=== PATIENT | female | born 2005 | race Hispanic/Latino ===

== ENCOUNTER 2025-02-21 16:14 | Emergency (ER) | payer SELFPAY ==
[~2025-02-21] VITALS: Ht 149.9 cm; Wt 86.2 kg
[2025-02-21 17:19] LABS: COVID19 (SARS ANTIGEN RAPID) PRESUMPTIVE NEGATIVE (NEGATIVE); INFLUENZA TYPE A Negative For Type A (NEGATIVE)
[2025-02-21 17:24] LABS: INFLUENZA TYPE B Positive For Type B (NEGATIVE)
[2025-02-21 17:25] LABS: APPEARANCE,URINE CLOUDY (CLEAR); BILIRUBIN,URINE NEGATIVE (NEGATIVE); COLOR,URINE YELLOW (YELLOW); GLUCOSE, URINE (UA) NEGATIVE (NEGATIVE); KETONES,URINE 5 mg/dL (NEGATIVE); LEUKOCYTE ESTERASE ,URINE NEGATIVE Leu/uL (NEGATIVE); NITRATE,URINE NEGATIVE (NEGATIVE); OCCULT BLOOD,URINE SMALL (NEGATIVE); PH,URINE 5.5 (5.0-8.0); PROTEIN,URINE 30 mg/dL (NEGATIVE); UROBILINOGEN,URINE 0.2 mg/dL (0.2-1.0)
[2025-02-21 17:26] LABS: HCG,QUALITATIVE URINE NEGATIVE (NEGATIVE)
--- NOTE | 2025-02-21 17:31 | ERN ---
ED Note History of Present Illness Stated Complaint: FLU SYMPTOMS Chief Complaint: Congestion Time Seen by MD: 16:17 Time Seen by Midlevel: 16:20 Dictation: 19-year-old female with no past medical history coming in complaining of congestion, chills, nausea onset last night. LMP isn't November, states she is irregular. Denies having any abdominal pain, diarrhea, dysuria or hematuria. Allergies: Coded Allergies: No Known Drug Allergies (Unverified Allergy, Unknown, 02/21/25) Past Medical History Past Medical History: No Pertinent History Surgical History: None Review of System Dictation Constitutional: Positive for chills and generalized malaise, and no weight loss Eyes: Negative for injury, pain,redness, and discharge ENT: Negative for injury,pain or swelling Cardiovascular: Negative for chest pain, palpitations, and edema Respiratory: Negative for shortness of breath, cough, and wheezing, Abdomen/GI: Negative for abdominal pain, nausea, vomiting, diarrhea, and constipation Back: Negative for injury and pain : Negative for injury, bleeding and discharge MS/Extremity: Negative for injury and deformity Skin: Negative for rash, and discoloration Neuro: Negative for headache, weakness, numbness, tingling, and seizure Psych: Negative for suicide ideation, homicidal ideation, and hallucinations Review of Systems: was completed Initial Vital Sign VS Vital Signs Date Time Temp Pulse Resp B/P (MAP) Pulse Ox O2 Delivery O2 Flow Rate FiO2 02/21/25 16:14 99.0 107 16 115/85 97 Room Air Physical Exam Dictation General: awake, alert, NAD Head/Face: Normocephalic, atraumatic Eyes: PERRL, EOMI, vision at baseline ENT: oral cavity clear, TMs clear, no signs of infection Neck: Trachea midline, supple, no nuchal rigidity Cardiovascular: RRR, normal S1/S2, No MRGs, no JVD Respiratory: CTAB, no respiratory distress, No rales or wheezes Abdomen: Soft, non-tender, non-distended, normal bowel sounds, no guarding or rebound. Skin: Warm, dry, normal turgor, no rash MS/Extremity: Pulses equal, no cyanosis, neurovascular intact, FROM Neuro: COAx4, GCS 15, strength 5/5, CN 2-12 intact, normal cerebellar exam, normal gait, Psych: Normal behavior, mood, and affect normal Results (Laboratory/Radiology) Laboratory/Radiology Laboratory Tests Test 02/21/25 16:50 02/21/25 17:04 Influenza Type A Antigen Negative For Type A Influenza Type B Antigen Positive For Type B SARS-CoV-2 Antigen (Rapid) PRESUMPTIVE NEGATIVE Urine Color YELLOW (YELLOW) Urine Appearance CLOUDY (CLEAR) H Urine pH 5.5 (5.0-8.0) Urine Specific [place] 1.033 (1.001-1.031) Urine Protein 30 mg/dL (NEGATIVE) H Urine Glucose (UA) NEGATIVE mg/dL (NEGATIVE) Urine Ketones 5 mg/dL (NEGATIVE) H Urine Occult Blood SMALL (NEGATIVE) H Urine Nitrate NEGATIVE (NEGATIVE) Urine Bilirubin NEGATIVE mg/dL (NEGATIVE) Urine Urobilinogen 0.2 mg/dL (0.2-1.0) Urine Leukocyte Esterase NEGATIVE Adrien/uL Urine RBC 2-5 /HPF (0-1) H Urine WBC 6-10 /HPF (0-1) H Urine Squamous Epithelial Cells MANY /HPF (0-2) Urine Amorphous Crystals (Auto) RARE /LPF (None Seen) Urine Bacteria MOD /HPF (None Seen) Urine HCG, Qualitative NEGATIVE (NEGATIVE) Labs Reviewed?: Yes ED Course ED Course Orders Procedure Category Date Status Time Influenza Type A & B, LAB 02/21/25 Complete Rapid 16:49 Covid19 (Sars Antigen LAB 02/21/25 Complete Rapid) 16:49 Urinalysis Profile LAB 02/21/25 Complete 16:49 ,Urine Test LAB 02/21/25 Complete 16:49 Culture Urine ROBERTO 02/21/25 Logged 17:41 Ceftriaxone 1g Vial PHA 02/21/25 Verified (Rocephine 1g Inj) 17:45 Vital Signs Date Time Temp Pulse Resp B/P (MAP) Pulse Ox O2 Delivery O2 Flow Rate FiO2 02/21/25 16:14 99.0 107 16 115/85 97 Room Air Medical Decision Making MDM MDM: Differential diagnosis: , urinary tract infection, influenza, COVID, viral syndrome Rationale: Tests considered and ordered secondary to shared decision making include: Previous outside records reviewed: Old ER visits. Risk of complication and/or morbidity or mortality of patient management: None Medications-Per medication reconciliation Need for hospitalization: Patient does not meet criteria for hospitalization. Need for emergency major/minor surgery: No There are no social concerns with this patient. Prescription drug management Prescriptions will include symptomatic care Patient's prior external medical records from other ER visits were reviewed by me as indicated. Prior testing and results from previous visits were reviewed. Prior tests were taken into account with medical decision making and resource utilization, independent historian/historians were used to obtain complete medical history. I independently interpreted the test that were performed, results were reviewed by me and considered findings on radiology if ordered. Medical management and examination interpretation discussions were had by me with other qualified healthcare professionals as indicated for the patient's care. DX & DISP Disposition: Discharge Departure Impression: Primary Impression: Influenza B Additional Impression: Urinary tract infection Condition: Stable Scripts Cephalexin Monohydrate (Keflex) 500 Mg Cap 500 MG PO QID for 7 Days, #28 CAP Prov: SHANT HAYES HATCHERY MANAGER 02/21/25 Oseltamivir Phosphate (Tamiflu) 75 Mg Cap 75 MG PO BID for 5 Days, #10 CAP Prov: SHANT HAYES HATCHERY MANAGER 02/21/25 I have reviewed the case, and I agree with, Diagnosis and Plan SHANT HAYES NP Feb 21, 2025 17:31
[2025-02-21 17:39] LABS: ADD UA MICROSCOPIC YES
[2025-02-21 17:40] LABS: BACTERIA,URINE MOD /HPF (None Seen); MUCUS,URINE MOD LPF (None Seen); SQUAMOUS EPITHELIAL CELL,UR MANY /HPF (0-2)
[2025-02-21] MEDS ORDERED: OSEL75 PO (17:48)
[2025-02-21] MEDS ORDERED: CEPH500B PO (17:48)
[2025-02-21] MEDS: cefTRIAXone 1G VIAL IM STA (19:22)
[2025-02-21 19:27] VITALS: BP 111/74; PULSE 92; RESP 16; TEMP 98.5; O2SAT 97
[2025-02-22] MEDS ORDERED: ONDA-243 PO (14:59)
== END 2025-02-21 19:28 | disposition home or self-care (01) ==
LOC: EDH 16:14
DX: J10.1 Influenza due to other identified influenza virus with other respiratory manifestations (principal); N39.0 Urinary tract infection, site not specified; Z20.822 Contact with and (suspected) exposure to COVID-19
CPT/HCPCS: 99283; 87426; 87086; 87804 ×2; 81001; 81025; 96372; J0696

== ENCOUNTER 2025-02-22 13:28 | Emergency (ER) | payer SELFPAY ==
[~2025-02-22] VITALS: Ht 149.9 cm; Wt 86.2 kg
[~2025-02-22 13:28] MED LIST: CEPH500B PO; OSEL75 PO
[2025-02-22 14:10] LABS: BASOPHILS # (AUTO) 0.01 K/uL (0.00-0.20); BASOPHILS % (AUTO) 0.3 % (0.0-5.0); HEMATOCRIT 37.7 % (36-48); IMMATURE GRANULOCYTE ABSOLUTE 0.01 K/uL (0-1); LYMPHOCYTES # (AUTO) 0.3 K/uL (1.0-4.8); LYMPHOCYTES % (AUTO) 9.6 % (21.0-51.0); MEAN CORPUSCULAR HEMOGLOBIN 28.4 pg (27.0-33.0); MEAN CORPUSCULAR HGB CONC 32.4 g/dL (32.0-36.0); MEAN CORPUSCULAR VOLUME 87.7 fL (80-100); MONOCYTES # (AUTO) 0.6 K/uL (0.1-1.0); MONOCYTES % (AUTO) 16.6 % (3.0-13.0); NEUTROPHILS # (AUTO) 2.6 K/uL (1.8-7.7); NEUTROPHILS % (AUTO) 73.2 % (40.0-77.0); PLATELET COUNT (AUTO) 228 K/uL (130-400); RED CELL DISTRIBUTION WIDTH 14.8 % (11.0-15.5); WHITE BLOOD COUNT (AUTO) 3.6 K/uL (4.8-10.8)
[2025-02-22 14:16] LABS: CREATININE 0.8 mg/dL (0.5-1.0); POTASSIUM 4.3 mmol/L (3.5-5.1)
--- NOTE | 2025-02-22 14:16 | HMCIMG ---
PORTABLE CHEST RADIOGRAPH INDICATION: cough COMPARISON: None FINDINGS: Heart size is normal. The pulmonary vascularity and olamide appear normal. No abnormal pulmonary parenchymal opacity or consolidation identified. No significant pleural effusion noted. No pneumothorax detected. IMPRESSION: No radiographic evidence for any acute cardiopulmonary process.
[2025-02-22] MEDS ORDERED: ONDA-243 PO (14:59)
--- NOTE | 2025-02-22 14:59 | ERN ---
ED Note History of Present Illness Stated Complaint: BODY ACHES, VOMITTING, WEAKNESS Chief Complaint: Fever Time Seen by MD: 13:29 Time Seen by Midlevel: 13:29 Dictation: The patient is a 19-year-old female with no past medical history who presents to the emergency department with complaints of nausea nonbloody vomiting, fevers, nasal congestion, cough onset yesterday. Patient reports she was seen here and was diagnosed with the flu and giving antibiotics for a UTI. Patient denies any diarrhea or constipation. Reports that she has been having multiple episodes of vomiting today and unable to keep her medication down. Allergies: Coded Allergies: No Known Drug Allergies (Unverified Allergy, Unknown, 02/21/25) Home Meds Active Scripts Cephalexin Monohydrate (Keflex) 500 Mg Cap, 500 MG PO QID for 7 Days, #28 CAP Prov:SHANT HAYES ASSISTANT OFFICE MANAGER 02/21/25 Oseltamivir Phosphate (Tamiflu) 75 Mg Cap, 75 MG PO BID for 5 Days, #10 CAP Prov:SHANT HAYES ASSISTANT OFFICE MANAGER 02/21/25 Past Medical History Past Medical History: No Pertinent History Surgical History: None LMP: Nov 07, 2024 RN Note Reviewed/Agreed w/PFSH: Yes Review of System Dictation Constitutional: Negative for and weight loss positive for fever, chills Eyes: Negative for injury, pain,redness, and discharge ENT: Negative for injury,pain or swelling positive for nasal congestion Cardiovascular: Negative for chest pain, palpitations, and edema Respiratory: Negative for shortness of breath, cough, and wheezing, Abdomen/GI: Negative for abdominal pain, diarrhea, and constipation positive for nausea and vomiting Back: Negative for injury and pain : Negative for injury, bleeding and discharge MS/Extremity: Negative for injury and deformity Skin: Negative for rash, and discoloration Neuro: Negative for headache, weakness, numbness, tingling, and seizure Psych: Negative for suicide ideation, homicidal ideation, and hallucinations Initial Vital Sign VS Vital Signs Date Time Temp Pulse Resp B/P (MAP) Pulse Ox O2 Delivery O2 Flow Rate FiO2 02/22/25 14:02 102.2 91 20 128/82 98 0 Physical Exam Dictation Vital Signs reviewed General Appearance: Alert, oriented x 3, no acute distress, well developed, nourished. Head and Face: non-traumatic. Eyes: PERRL, pink conjunctivas, eyelid no trauma, anterior chamber with arcus senilis. Ears: Pinnas intact and no signs of trauma or erythema ear canals clear and no discharge TM no erythema Nose: No discharge, no bleeding. Oropharynx: Mouth normal, tongue pink. pharynx clear,no erythema, tonsils no exudates, no abscesses noted, mucous membrane moist Neck: Supple, non-tender, no thyromegaly, no masses, no JVD, no bruits Breast:Deferred Chest:No tenderness, no crepitus, no paradoxical movement, no retractions Lungs:Clear, well-ventilated, symmetric, no rales, no wheezing, no rhonchi, no stridor, good breath sounds bilaterally Heart: Regular rate, regular rhythm, no murmur, no gallops Vascular: no peripheral edema, Abdomen: Soft, positive bowel sounds, nondistended, no guarding, nontender, no rebound, no masses no hepatomegaly, no splenomegaly, no Lozano's sign, no hernias. Rectal: Deferred Genital: Deferred Neurological: Normal speech, motor function intact, sensory function intact Musculoskeletal: Neck nontender, full range of motion, back nontender, full rang e of motion, Extremities: nontender, full range of motion Skin: Color pink, dry, no turgor, no rash, no lacerations, no abrasions, no contusions. Lymphatic: Deferred Results (Laboratory/Radiology) Laboratory/Radiology Laboratory Tests Test 02/22/25 13:58 White Blood Count 3.6 K/uL (4.8-10.8) L Red Blood Count 4.30 MIL/uL (4.00-5.50) Hemoglobin 12.2 g/dL (12.0-16.0) Hematocrit 37.7 % (36-48) Mean Corpuscular Volume 87.7 fL (80-100) Mean Corpuscular Hemoglobin 28.4 pg (27.0-33.0) Mean Corpuscular Hemoglobin Concent 32.4 g/dL (32.0-36.0) Red Cell Distribution Width 14.8 % (11.0-15.5) Platelet Count 228 K/uL (130-400) Mean Platelet Volume 11.1 fL (7.5-10.5) H Immature Granulocyte % (Auto) 0.3 % (0-1) Neutrophils (%) (Auto) 73.2 % (40.0-77.0) Lymphocytes (%) (Auto) 9.6 % (21.0-51.0) L Monocytes (%) (Auto) 16.6 % (3.0-13.0) H Eosinophils (%) (Auto) 0.0 % (0.0-8.0) Basophils (%) (Auto) 0.3 % (0.0-5.0) Neutrophils # (Auto) 2.6 K/uL (1.8-7.7) Lymphocytes # (Auto) 0.3 K/uL (1.0-4.8) L Monocytes # (Auto) 0.6 K/uL (0.1-1.0) Eosinophils # (Auto) 0.00 K/uL (0.00-0.70) Basophils # (Auto) 0.01 K/uL (0.00-0.20) Absolute Immature Granulocyte (auto 0.01 K/uL (0-1) Nucleated Red Blood Cells 0.0 % (0.0-0.19) White Cell Morphology Comment See comments Sodium Level 136 mmol/L (136-145) Potassium Level 4.3 mmol/L (3.5-5.1) Chloride Level 99 mmol/L (101-111) L Carbon Dioxide Level 28 mmol/L (21-32) Blood Urea Nitrogen 11 mg/dL (7-18) Creatinine 0.8 mg/dL (0.5-1.0) Glomerular Filtration Rate Calc 107 mL/min (>90) Random Glucose 113 mg/dL (70-105) H Total Calcium 8.7 mg/dL (8.5-10.1) REASON: cough ORDERING PHYSICIAN: SAM ARORA PROCEDURE: CXR1VW - CHEST 1VW PORTABLE CHEST RADIOGRAPH INDICATION: cough COMPARISON: None FINDINGS: Heart size is normal. The pulmonary vascularity and olamide appear normal. No abnormal pulmonary parenchymal opacity or consolidation identified. No significant pleural effusion noted. No pneumothorax detected. IMPRESSION: No radiographic evidence for any acute cardiopulmonary process. Labs Reviewed?: Yes ED Course ED Course Orders Procedure Category Date Status Time Cbc With Differential LAB 02/22/25 Complete 13:45 Basic Metabolic Panel LAB 02/22/25 Complete 13:45 0.9%Nacl 1000ml (Ns PHA 02/22/25 Complete 1000ml) 14:00 Ondansetron 4mg Inj PHA 02/22/25 Complete (Zofran 4mg Inj) 14:00 Pantoprazole 40mg Inj PHA 02/22/25 Complete (Protonix 40mg Inj 14:00 Chest 1vw RAD 02/22/25 Resulted 13:45 Acetaminophen 500mg PHA 02/22/25 Complete Tab (Tylenol 500mg T 14:30 Current Medications Medications (Trade) Dose Ordered Sig/Lia Route PRN Reason Start Time Stop Time Status Last Admin Dose Admin Acetaminophen (TYLenol 500MG TAB) 1,000 mg ONCE ONCE PO 02/22/25 14:30 02/22/25 14:31 DC Ondansetron HCl (zoFRAN 4MG INJ) 4 mg ONCE ONCE IVP 02/22/25 14:00 02/22/25 14:01 DC Pantoprazole Sodium (PROTonix 40MG INJ) 40 mg ONCE ONCE IVP 02/22/25 14:00 02/22/25 14:01 DC Sodium Chloride 1,000 ml @ 0 mls/hr ONCE ONCE IV 02/22/25 14:00 02/22/25 14:01 DC Vital Signs Date Time Temp Pulse Resp B/P (MAP) Pulse Ox O2 Delivery O2 Flow Rate FiO2 02/22/25 14:02 102.2 91 20 128/82 98 0 Medical Decision Making MDM The patient is a 19-year-old female with no past medical history who presents to the emergency department with complaints of nausea nonbloody vomiting, fevers, nasal congestion, cough onset yesterday. Patient reports she was seen here and was diagnosed with the flu and giving antibiotics for a UTI. Patient denies any diarrhea or constipation. Reports that she has been having multiple episodes of vomiting today and unable to keep her medication down. CBC showed no leukocytosis, no anemia, chemistry showed no electrolyte imbalance. Chest x-ray showed no acute pathology. Patient received IV fluids and antiemetic medication in ER. Patient instructed not to continue Tamiflu if it is causing her GI discomfort. Patient with a nontender abdomen to palpation. In no acute distress, nontoxic appearing we will be discharged to follow up with PCP. Patient has symptoms probably related to the flu. Differential diagnosis: Influenza B, gastroenteritis, gastritis, dehydration Need for hospitalization: Patient does not meet criteria for hospitalization. There are no social concerns with this patient. DX & DISP Disposition: Discharge Departure Impression: Primary Impression: Influenza B Additional Impression: Nausea and vomiting Condition: Stable Scripts Ondansetron (Ondansetron Odt) 4 Mg Tab.rapdis 4 MG PO Q6HPRN PRN for nausea, #16 TAB 0 Refills Prov: SAM ARORA CHELLY 02/22/25 Additional Instructions: Please follow up with your primary doctor in 1-2 days. Continue oral hydration at home. Tamiflu the medication used for your influenza treatment can cause nausea and vomiting. If vomiting becomes severe I recommend you stopped taking the medication. If symptoms worsen please return to ER. FOLLOW-UP WITH PRIMARY CARE PROVIDER IN 1 TO 2 DAYS. TAKE MEDICATIONS DIRECTED HERE IN THE EMERGENCY ROOM. OKAY TO CONTINUE HOME MEDICATIONS UNLESS OTHERWISE DISCUSSED DURING YOUR VISIT IN THE EMERGENCY ROOM TODAY. RETURN TO YOUR NEAREST EMERGENCY ROOM IF SYMPTOMS WORSEN OR IF THERE IS NO IMPROVEMENT. CALL 911 IF YOU NEED IMMEDIATE ASSISTANCE. TAKE TYLENOL OR MOTRIN [id number] NEEDED AND IF NO CONTRAINDICATIONS ARE PRESENT. INCREASE ORAL HYDRATION. A WOUND CULTURE OR URINE CULTURE WAS ORDERED HERE IN THE EMERGENCY ROOM DEPARTMENT PLEASE FOLLOW-UP WITH PRIMARY CARE PROVIDER AND ADVISE THEM TO GET REPEAT PORTS FROM OUR FACILITY. IF YOU HAD ANY BRADLEY WRAP/SPLINTS THAT WERE APPLIED HERE, PLEASE DO NOT REMOVE THEM UNTIL YOU SEE YOUR PRIMARY CARE OR SPECIALTY. Referrals: SELF,REFERRAL (PCP) Time of Disposition: 14:57 I have reviewed the case, and I agree with, Diagnosis and Plan SAM ARORA CHELLY Feb 22, 2025 14:59
[2025-02-22] MEDS: acetaMINOPHEN 500 MG TABLET PO ONE (16:23)
[2025-02-22] MEDS: 0.9%NACL 1000ML 1,000 ML IV ONE (16:23)
[2025-02-22] MEDS: ondanSETRON 4MG INJ IVP ONE (16:24)
[2025-02-22] MEDS: PANTOPrazole 40 MG/VIAL IVP ONE (16:24)
[2025-02-22 17:09] VITALS: BP 115/79; PULSE 80; RESP 18; TEMP 99.8; O2SAT 100
[2025-02-22 17:24] VITALS: TEMP 99.5
== END 2025-02-22 17:27 | disposition home or self-care (01) ==
LOC: EDH 13:28
DX: J10.1 Influenza due to other identified influenza virus with other respiratory manifestations (principal); R11.2 Nausea with vomiting, unspecified; Z79.899 Other long term (current) drug therapy
CPT/HCPCS: 99284; 96374; 71045; 96361; 96375; 80048; 85025; 36415; J7030; J2405; J2470